=== PATIENT | female | born 1985 | race Caucasian/White ===

== ENCOUNTER → 2016-09-01 | Outpatient (CLI) | payer SELFPAY | LOC: MW.CHOBGYN 10:36 | PROVIDERS: ATTEND Nurse Practitioner Women's Health | DX: R10.31 Right lower quadrant pain (principal) | CPT/HCPCS: 81001; 81025 ==

== ENCOUNTER → 2016-09-23 | Outpatient (CLI) | payer BC ==
--- NOTE | 2016-09-23 16:57 | US ---
EXAMINATION: Transvaginal pelvic ultrasound HISTORY: Right lower quadrant pain COMPARISON: None TECHNIQUE: Grayscale, spectral and color Doppler images obtained transvaginally. FINDINGS: Uterus is normal in size, contour, and echogenicity without a focal uterine mass. Endometr ial stripe thickness is normal at 3 mm. No significant free pelvic fluid. Both the left and right ovaries appear normal in size, contour, and echogenicity demonstrating tony l color and spectral Doppler flow. Small follicles are noted. No adnexal masses. IMPRESSION: Unremarkable pelvic ultrasound.
== END ==
LOC: MW.US 13:08
PROVIDERS: ATTEND Nurse Practitioner Women's Health
DX: R10.31 Right lower quadrant pain (principal)
CPT/HCPCS: 76830; 76830-26